=== PATIENT | female | born 1995 | race Caucasian/White ===

== ENCOUNTER 2018-06-30 03:35 | Emergency (ER) | payer BC ==
[~2018-06-30] VITALS: Ht 162.6 cm; Wt 122.7 kg
[2018-06-30 03:38] VITALS: TEMP 98.8
[2018-06-30] MEDS ORDERED: BIRTH CONTROL PATCH (04:34)
[2018-06-30 05:28] VITALS: BP 113/67; PULSE 103
== END 2018-06-30 05:47 | disposition home or self-care (01) ==
LOC: COL.ER 03:35
DX: F10.129 Alcohol abuse with intoxication, unspecified (principal); R00.2 Palpitations